=== PATIENT | male | born 1950 | race Caucasian/White ===

== ENCOUNTER → 2016-07-18 | Outpatient (REF) | payer BC ==
[~2016-07-18] MED LIST: /AMLO25TA PO; AMLO10TA PO; AMLO10TA2 PO; ASPI325T PO; AUGM875T27 PO; BACIDCA PO; BACT800T5 PO; BENZ100C5 PO; COLA50CA3 PO; DRIS50002 PO; FENO160T10 PO; HUMA75VL SC; HYDR12.55 PO; JANU100T PO; KEFL500C7 PO; LISI-538 PO; LISI5TAB PO; METF1000 PO; METF500T PO; METO-207 PO; PERC5TAB6 PO; PERCOCET PO; PRIN10TA PO; SENO8.6T10 PO; [UNRECOGNIZED DRUG - CODE] SC; [UNRECOGNIZED DRUG - OTHER] PO
[2016-07-18 15:24] LABS: BASO % 0.8 % (0.0-1.0); EOS # 0.1 K/mm3 (0.0-0.50); EOS % 1.3 % (0.0-3.0); LARGE UNSTAINED CELL # 0.3 K/mm3 (0.0-0.4); LYMPH # 1.4 K/mm3 (1.5-4.5); LYMPH % 19.7 % (24.0-44.0); MEAN CORPUSCULAR HEMOGLOBIN 28.9 pg (27.0-33.0); MEAN CORPUSCULAR HGB CONC 33.1 g/dl (32.0-36.5); MEAN CORPUSCULAR VOLUME 87.5 fl (80.0-96.0); MONO # 0.7 K/mm3 (0.0-0.8); MONO % 9.6 % (0.0-5.0); NEUTROPHILS # 4.4 K/mm3 (1.8-7.7); NEUTROPHILS % 64.6 % (36.0-66.0); PLATELET COUNT, AUTOMATED 316 k/mm3 (150-450); RED CELL DISTRIBUTION WIDTH 13.4 % (11.5-14.5); WHITE BLOOD COUNT 6.8 K/mm3 (4.0-10.0)
[2016-07-18 15:32] LABS: ALBUMIN 3.5 GM/DL (3.2-5.2); ALBUMIN/GLOBULIN RATIO 0.92 (1.00-1.93); BILIRUBIN,TOTAL 0.7 MG/DL (0.2-1.0); CALCIUM LEVEL 8.7 MG/DL (8.8-10.2); CREATININE FOR GFR 2.14 MG/DL (0.70-1.30); POTASSIUM SERUM 4.5 MEQ/L (3.5-5.1); TOTAL PROTEIN 7.3 GM/DL (6.4-8.2)
== END ==
LOC: M LAB REF 14:56
PROVIDERS: ATTEND Physician Assistant
DX: J10.1 Influenza due to other identified influenza virus with other respiratory manifestations (principal)

== ENCOUNTER → 2021-07-04 | Outpatient (REF) | payer BC ==
[~2021-07-04] MED LIST changes: -/AMLO25TA PO; +ASPI-1 PO; +BENZ-18 PO; -BENZ100C5 PO; -DRIS50002 PO; +DRIS50003 PO; +KEFL500C17 PO; -KEFL500C7 PO; -LISI-538 PO; +LISI20TA33 PO; -METF1000 PO; +METF10004 PO; -METO-207 PO; +METO1TAB7 PO; +NORV2TAB PO; +OXYC1TAB23 PO; +PERC5TAB12 PO; -PERC5TAB6 PO; -PERCOCET PO
== END ==
LOC: M LAB REF 15:28
PROVIDERS: ATTEND Podiatrist
DX: L03.032 Cellulitis of left toe (principal); M79.672 Pain in left foot

== ENCOUNTER → 2022-02-14 | Outpatient (REF) | payer BC ==
[2022-02-20 19:29] LABS: CREATININE, URINE 61.2 MG/DL; MALB URINE SIEMENS 97.4 MG/L; MAU/CREAT RATIO 159.1 MCG/MG (0.0-30.0)
== END ==
LOC: M LAB REF 16:56
PROVIDERS: ATTEND Internal Medicine Nephrology
DX: E11.22 Type 2 diabetes mellitus with diabetic chronic kidney disease (principal); N18.9 Chronic kidney disease, unspecified

== ENCOUNTER → 2022-05-25 | Outpatient (REF) | payer BC ==
[2022-05-25 18:43] LABS: CREATININE, URINE 164.2 MG/DL; MAU/CREAT RATIO 58.4 MCG/MG (0.0-30.0)
== END ==
LOC: M LAB REF 17:15
PROVIDERS: ATTEND Internal Medicine Nephrology
DX: E11.22 Type 2 diabetes mellitus with diabetic chronic kidney disease (principal)